=== PATIENT | male | born 1985 | race African-American/Black ===

== ENCOUNTER 2017-04-07 07:11 | Emergency (ER) | payer BC, OTHER ==
[2017-04-07 07:24] VITALS: BP 128/72; PULSE 73; TEMP 98.4; BMI 33.0
[2017-04-07] MEDS ORDERED: ACETAMINOPHEN 325 MG TABLET (FP) PO ONE (07:45)
[2017-04-07] MEDS ORDERED: CYCLOBENZAPRINE HCL 5 MG TABLET PO ONE ×2 (07:45→08:10)
[2017-04-07] MEDS ORDERED: ACETAMINOPHEN 325 MG TABLET (FP) ONE (08:07)
[2017-04-07] MEDS ORDERED: CYCLOBENZAPRINE HCL 10 MG TABLET (FP) ONE (08:08)
--- NOTE | 2017-04-07 08:16 | PDOC ---
History of Present Illness - General Chief Complaint: Pain, Acute Stated Complaint: NECK PAIN Time Seen by Provider: 04/07/17 07:37 History Source: Patient Exam Limitations: No Limitations - History of Present Illness Initial Comments: 04/07/17 08:26 31y M presents with L neck pain. The patient woke up last week with L neck pain , tightness, that was very mild but has gotten worse in the past few days. Pt states it hurts when he turns his head or moves his head. There was no heavy lifting, trauma. Pt notes mild tinglin gin his fingers, but denies any numbness , weakness, fever chills, difficulty swallowing, facial numbness/tingilng. pt denies any back pain, chest pain, sob, abd pain. pt took one dose of 800mg ibuprofen this morning at 4am with minimal relief. Past History - Past Medical History Allergies/Adverse Reactions: Allergies Allergy/AdvReac Type Severity Reaction Status Date / Time No Known Allergies Allergy Verified 04/07/17 07:16 Home Medications: Ambulatory Orders Cyclobenzaprine HCl [Flexeril 10 mg] 10 mg PO BID PRN #60 tablet 04/07/17 COPD: No - Suicide/Smoking/Psychosocial Hx Smoking History: Never smoked Information on smoking cessation initiated: No Hx Alcohol Use: No Drug/Substance Use Hx: No Substance Use Type: None Review of Systems - Review of Systems Able to Perform ROS?: Yes Comments:: 04/07/17 08:44 Constitutional - no reported Fever, Chills, HEENT: no reported vision changes, sore throat Respiratory: no reported cough, sob, hemoptysis Cardiac: no reported chest pain, palpitations, light headedness, leg swelling Abd/GI: no reported abd pain, nausea, vomiting, blood per rectum, melena, diarrhea : no reported dysuria, frequency, discharge Musculskelatal - +neck pain no reported back pain, joint swelling skin - no reported bruising, erythema, rash neurological: +tingling no reported headache, numbness, focal weakness, ataxia, hematologic: no reported anemia, easy bruising, easy bleeding *Physical Exam - Vital Signs Last Vital Signs Temp Pulse Resp BP Pulse Ox 98.4 F 73 18 128/72 100 04/07/17 07:14 04/07/17 07:14 04/07/17 07:14 04/07/17 07:14 04/07/17 07:14 - Physical Exam Comments: 04/07/17 08:45 GENERAL: The patient is awake, alert, and fully oriented, Nontoxic - in no acute distress. HEAD: Normocephalic, atraumatic. EYES: extraocular movements intact, sclera anicteric, conjunctiva clear. ENT: Normal voice, Moist mucous membranes. NECK: Normal range of motion, supple EXTREMITIES: Normal range of motion, no edema. NEUROLOGICAL: No facial assymetry, Normal speech, strength 5/5 in upper extremities, symmetricly. sensation intact in upper extreimties symmetrically. PSYCH: Normal mood, normal affect. SKIN: Warm, Dry, normal turgor, Medical Decision Making - Medical Decision Making 04/07/17 08:46 suspect neck spasm no signs of perispinal abscess, bony abdnomrlaity/tenderness, no signs of dissection will treat with nsaids, antispasmotic will dc with pmd fu I discussed the physical exam findings, ancillary test results and final diagnoses with the patient. I answered all of the patient's questions. The patient was satisfied with the care received and felt comfortable with the discharge plan and treatment plan. The patient will call their primary care physician within 24 hours to arrange follow-up and will return to the Emergency Department with any new, persistent or worsening symptoms. *DC/Admit/Observation/Transfer Diagnosis at time of Disposition: Neck muscle spasm - Discharge Dispostion Disposition: HOME Condition at time of disposition: Improved Admit: No - Prescriptions Prescriptions: Cyclobenzaprine HCl [Flexeril 10 mg] 10 mg PO BID PRN #60 tablet PRN Reason: Pain - Referrals Referrals: [facility] [place] [Provider Group] - Patient Instructions Printed Discharge Instructions: DI for Torticollis Additional Instructions: Return to the emergency department immediately with ANY new, persistent or worsening symptoms including any worsening pain, weakeness in your arms, or any other concerns. I suspect your pain is due to a muscle spasm. Please take motrin and the flexeril for your pain. Use a heating pad for comfort. You MUST call and follow up with your doctor tomorrow for further evaluation of your symptoms. Results were discussed with you. Please make sure your doctor reviews the results of your emergency evaluation. Print Language: PALAUAN - Post Discharge Activity
== END 2017-04-07 08:44 | disposition home or self-care (01) ==
LOC: JER 07:11
DX: M62.838 Other muscle spasm (principal)
CPT/HCPCS: 99281-25